=== PATIENT | male | born 1940 | race Caucasian/White ===

== ENCOUNTER 2018-03-10 18:19 | Emergency (ER) | payer MEDICARE ==
[~2018-03-10] VITALS: Ht 170.2 cm; Wt 73.8 kg
[2018-03-10] MEDS ORDERED: GLUCOPHAGE1000 MG PO (18:29)
[2018-03-10] MEDS ORDERED: HUMALOG100 UNIT/2 SUBQ (18:29)
[2018-03-10] MEDS ORDERED: PLAVIX 75 MG TA75 M1 PO (18:29)
[2018-03-10] MEDS ORDERED: PRAVACHOL20 MG PO (18:31)
[2018-03-10 18:55] LABS: ABSOLUTE BASOPHILS 0.1 thou/uL (0.0-0.2); ABSOLUTE EOSINOPHILS 0.1 thou/uL (0.0-0.7); ABSOLUTE LYMPHOCYTES 2.9 thou/uL (0.8-5.3); ABSOLUTE MONOCYTES 0.8 thou/uL (0.0-1.2); ABSOLUTE NEUTROPHILS 4.8 thou/uL (1.6-8.1); BASOPHILS 0.9 %; EOSINOPHILS 0.9 %; HEMATOCRIT 41.2 % (42.0-52.0); HEMOGLOBIN 13.7 gm/dL (14.0-18.0); LYMPHOCYTES 33.9 %; MCH 30.7 pg (26.0-34.0); MCHC 33.4 g/dL (28.0-37.0); MONOCYTES 9.1 %; MPV 9.5 fl. (7.2-11.1); NUCLEATED RBCS 0 /100WBC; PLATELET COUNT* 240 thou/uL (150-400); POLYS 55.2 %; RBC 4.48 mil/uL (4.50-6.00); RDW-CV 14.3 % (10.5-14.5); WBC 8.6 thou/uL (4.0-11.0)
[2018-03-10 19:04] LABS: APTT 27.4 Seconds (25.0-31.3)
[2018-03-10 19:07] LABS: ANION GAP 3 mmol/L (7-16); BUN 19 mg/dL (7-18); CALCIUM 8.5 mg/dL (8.5-10.1); CHLORIDE 101 mmol/L (98-107); CO2 30 mmol/L (21-32); CREATININE 0.8 mg/dL (0.6-1.3); GLUCOSE 158 mg/dL (70-99); POTASSIUM 3.8 mmol/L (3.5-5.1); SODIUM 134 mmol/L (136-145)
[2018-03-10 19:11] LABS: ALBUMIN 3.4 g/dL (3.4-5.0); ALKALINE PHOSPHATASE 56 U/L (46-116); SGOT 10 U/L (15-37); SGPT 18 U/L (30-65); TOTAL BILIRUBIN 0.4 mg/dL (<0.1-1.0); TOTAL PROTEIN 6.6 g/dL (6.4-8.2); TROPONIN-I LEVEL <0.06 ng/mL (<0.06)
[2018-03-10 20:24] LABS: URINE BILIRUBIN NEGATIVE (Negative); URINE BLOOD NEGATIVE (Negative); URINE CLARITY CLEAR; URINE COLOR YELLOW; URINE GLUCOSE-RANDOM NEGATIVE (Negative); URINE KETONES NEGATIVE (Negative); URINE LEUKOCYTES NEGATIVE (Negative); URINE NITRITE NEGATIVE (Negative); URINE PROTEIN NEGATIVE (Negative); URINE SPECIFIC GRAVITY 1.015 (1.005-1.030); URINE UROBILINOGEN 0.2 E.U./dl (0.2-1.0)
[2018-03-10] MEDS ORDERED: PRINIVIL20 M1 PO (20:37)
[2018-03-10 20:45] VITALS: BP 153/70
--- NOTE | 2018-03-11 14:39 | EKG ---
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
== END 2018-03-10 20:49 | disposition home or self-care (01) ==
LOC: M.ERS 18:19
PROVIDERS: Nurse Practitioner Family
DX: I10 Essential (primary) hypertension (principal); E11.9 Type 2 diabetes mellitus without complications; Z79.4 Long term (current) use of insulin; Z86.73 Personal history of transient ischemic attack (TIA), and cerebral infarction without residual deficits